=== PATIENT | female | born 1960 | race Caucasian/White ===

== ENCOUNTER → 2016-12-14 | Outpatient (CLI) | payer OTHER ==
[~2016-12-14] MED LIST: IBUP200C PO
== END | disposition home or self-care (01) ==
LOC: CFH 12:10
PROVIDERS: ATTEND Family Medicine
DX: Z12.31 Encounter for screening mammogram for malignant neoplasm of breast (principal)
CPT/HCPCS: G0202

== ENCOUNTER 2017-09-24 11:54 | Day surgery (SDC) | payer OTHER ==
[2017-09-17 10:00] VITALS: BP 148/82
[~2017-09-24] VITALS: Ht 177.8 cm; Wt 74.0 kg
[~2017-09-24 11:54] MED LIST changes: -IBUP200C PO; +IBUP200C5 PO; +[UNRECOGNIZED DRUG - REMARK]
[2017-09-24] MEDS ORDERED: LACTATED RINGERS 1,000 ML IV SCH ×3 (12:46→19:30)
[2017-09-24] MEDS ORDERED: CIPR10DR RIGHT EAR (13:00)
[2017-09-24] MEDS ORDERED: LIDOCAINE 1%, 2ML ONE (13:01)
[2017-09-24] MEDS ORDERED: BUPIVACAINE/PF 0.5% ONE (13:29)
[2017-09-24] MEDS ORDERED: LIDOCAINE 1%, 2ML SQ PRN (13:30)
[2017-09-24] MEDS ORDERED: EPINEPHRINE 1 MG/ML, 1ML ONE (13:30)
[2017-09-24] MEDS ORDERED: FENTANYL PF 250 MCG/5ML ONE (14:11)
[2017-09-24] MEDS ORDERED: MIDAZOLAM 1 MG/ML, 2ML ONE (14:11)
[2017-09-24] MEDS ORDERED: GLYCOPYRROLATE 0.2MG/1ML, 5ML ONE (14:12)
[2017-09-24] MEDS ORDERED: NEOSTIGMINE 1 MG/ML, 10ML ONE (14:12)
[2017-09-24] MEDS ORDERED: PROPOFOL 10 MG/ML, 20ML ONE (14:30)
[2017-09-24] MEDS ORDERED: ROCURONIUM 10 MG/ML,10ML ONE (14:30)
[2017-09-24] MEDS ORDERED: SUCCINYLCHOLINE 20 MG/ML, 10ML ONE (14:30)
[2017-09-24] MEDS ORDERED: DEXAMETHASONE 4 MG/ML, 1ML ONE ×2 (14:30→14:33)
[2017-09-24] MEDS ORDERED: CEFAZOLIN 1,000 MG ONE ×2 (14:30→14:33)
[2017-09-24] MEDS ORDERED: ONDANSETRON 2MG/ML, 2ML ONE ×3 (14:30→15:21)
[2017-09-24] MEDS ORDERED: KETOROLAC 30 MG/1 ML ONE (15:14)
[2017-09-24] MEDS ORDERED: LABETALOL 5MG/ML, 20ML ONE (15:14)
[2017-09-24] MEDS ORDERED: OXYcodone 5 MG/5 ML ORAL.SOL UDC ONE (15:14)
[2017-09-24] MEDS ORDERED: FENTANYL PF 100 MCG/2ML ONE (15:14)
[2017-09-24] MEDS ORDERED: ACETAMINOPHEN 650 MG/20.3 ML UDC ONE (15:14)
[2017-09-24] MEDS: FENTANYL PF 100 MCG/2ML IV PRN ×2 (15:17→15:26)
[2017-09-24] MEDS: LABETALOL 5MG/ML, 20ML IV PRN ×2 (15:19→15:44)
[2017-09-24] MEDS ORDERED: MEPERIDINE/PF 25MG/0.5ML IVPush PRN (15:30)
[2017-09-24] MEDS ORDERED: hydrALAzine 20 MG/ML, 1ML IV PRN (15:30)
[2017-09-24] MEDS ORDERED: HYDROmorphone 2 MG/ML, 1ML ONE (15:30)
[2017-09-24] MEDS ORDERED: ALBUTEROL SULFATE 2.5 MG/3 ML NPPB PRN (15:30)
[2017-09-24] MEDS ORDERED: KETOROLAC 30 MG/1 ML IV PRN (15:30)
[2017-09-24] MEDS ORDERED: ONDANSETRON 2MG/ML, 2ML IVPush PRN (15:30)
[2017-09-24] MEDS ORDERED: ACETAMINOPHEN 325 MG TABLET PO PRN (15:30)
[2017-09-24] MEDS ORDERED: PROMETHAZINE 25 MG/ML, 1ML IV PRN (15:30)
[2017-09-24] MEDS ORDERED: HYDROmorphone 1 MG/ML, 1ML IV PRN (15:30)
[2017-09-24] MEDS ORDERED: OXYcodone 5 MG/5 ML ORAL.SOL UDC PO PRN (15:30)
[2017-09-24] MEDS ORDERED: MIDAZOLAM 1 MG/ML, 2ML IV PRN (15:30)
[2017-09-24 19:25] VITALS: BP 133/77
[2017-09-24] MEDS ORDERED: MORPHINE SULFATE 4 MG/ML, 1ML IVPush PRN (19:30)
[2017-09-24] MEDS ORDERED: OXYcodone/APAP 5/325MG TABLET PO PRN (19:30)
== END 2017-09-24 20:30 | disposition home or self-care (01) ==
LOC: OUT 11:54 → 4NOR 19:12 → OUT 20:30
PROVIDERS: ATTEND Surgery
DX: K80.12 Calculus of gallbladder with acute and chronic cholecystitis without obstruction (principal); Z86.19 Personal history of other infectious and parasitic diseases; Z87.891 Personal history of nicotine dependence; Z72.89 Other problems related to lifestyle
CPT/HCPCS: 47379; 47562; 88304; 88307; 88313; J0171; J0330; J0690; J1100; J1170; J1885; J2250; J2405; J2704; J2710; J3010; J3490; J7120

== ENCOUNTER → 2018-01-24 | Outpatient (CLI) | payer OTHER ==
[~2018-01-24] MED LIST changes: +CIPR10DR RIGHT EAR
== END ==
LOC: CFH 08:42
PROVIDERS: ATTEND Family Medicine
DX: Z12.31 Encounter for screening mammogram for malignant neoplasm of breast (principal)
CPT/HCPCS: 77067

== ENCOUNTER 2019-04-30 10:15 | Emergency (ER) | payer OTHER ==
[~2019-04-30] VITALS: Ht 177.8 cm; Wt 72.3 kg
[2019-04-30 13:42] VITALS: BP 121/74
== END 2019-04-30 13:44 | disposition home or self-care (01) ==
LOC: ED 12:48
DX: N30.00 Acute cystitis without hematuria (principal); R10.30 Lower abdominal pain, unspecified
CPT/HCPCS: 36415; 74021; 76830; 80053; 81001; 83690; 85025; 87077; 87086; 87147; 87186; 99284

== ENCOUNTER 2020-06-24 12:23 | Emergency (ER) | payer SELFPAY ==
[~2020-06-24] VITALS: Ht 177.8 cm; Wt 74.1 kg
[~2020-06-24 12:23] MED LIST changes: +IBUP-1623 PO; -IBUP200C5 PO
[2020-06-24] MEDS ORDERED: SODIUM CHLORIDE FLUSH 10ML SYR IVF ONE (13:00)
[2020-06-24] MEDS ORDERED: SODIUM CHLORIDE 0.9% 1,000ML IVBOLUS ONE (13:00)
--- NOTE | 2020-06-24 13:00 | NUR ---
Pt here for abd pain with diarrhea for 3 days. Pt reports that she knows her coworker had a gi bug but it only lasted 3 days and hers is almost on 7 days of symptoms. Pt reports that she has had decreased po intake now and does not feel well. Pt connected to monitors and call light in reach. Awaiting further orders.
[2020-06-24 13:06] LABS: BASOPHILS % (AUTO) 1 % (0-1); EOSINOPHILS % (AUTO) 2 % (1-7); LYMPHOCYTES % (AUTO) 18 % (22-44); MEAN CORPUSCULAR HEMOGLOBIN 30.7 pg (27.0-34.8); MEAN CORPUSCULAR HGB CONC 33.3 g/dL (32.4-35.8); MEAN PLATELET VOLUME 7.4 fL (7.4-10.4); MONOCYTES % (AUTO) 9 % (2-9); NEUTROPHILS % (AUTO) 70 % (42-75); PLATELET COUNT 396 x10^3/uL (130-400); RED BLOOD COUNT 4.89 x10^6/uL (3.82-5.3); RED CELL DISTRIBUTION WIDTH 12.5 % (9.6-15.2)
[2020-06-24 13:07] LABS: MD NO
--- NOTE | 2020-06-24 13:15 | NUR ---
PIV placed and ivf running
[2020-06-24 13:17] LABS: ALBUMIN 4.1 g/dL (3.4-5.0); ANION GAP 6 mmol/L (5-15); CALCIUM 9.1 mg/dL (8.5-10.1); CHLORIDE 108 mmol/L (98-107)
[2020-06-24 13:19] LABS: ALANINE AMINOTRANSFERASE 34 U/L (12-78); ALKALINE PHOSPHATASE 101 U/L (45-117); BILIRUBIN,TOTAL 0.6 mg/dL (0.2-1.0); CREATININE 0.92 mg/dL (0.55-1.02); TOTAL PROTEIN 8.2 g/dL (6.4-8.2)
--- NOTE | 2020-06-24 14:12 | NUR ---
Pt taken to restroom.
[2020-06-24 14:29] VITALS: BP 124/86
--- NOTE | 2020-06-24 14:54 | NUR ---
awaiting dc papers at this time.
--- NOTE | 2020-06-24 15:30 | NUR ---
Patient/Caregiver given discharge instructions and they have confirmed that they understand the instructions. Patient ambulatory with steady gait.
== END 2020-06-24 15:32 | disposition home or self-care (01) ==
LOC: ED 14:19
DX: R19.7 Diarrhea, unspecified (principal); R10.30 Lower abdominal pain, unspecified
CPT/HCPCS: 36415; 74021; 80053; 85025; 96360; 99284; J7030

== ENCOUNTER 2020-07-18 10:55 | Emergency (ER) | payer SELFPAY ==
[~2020-07-18] VITALS: Ht 177.8 cm; Wt 78.1 kg
[2020-07-18] MEDS ORDERED: SODIUM CHLORIDE FLUSH 10ML SYR IVF ONE (12:00)
[2020-07-18 12:02] LABS: BASOPHILS % (AUTO) 1 % (0-1); EOSINOPHILS % (AUTO) 2 % (1-7); LYMPHOCYTES % (AUTO) 24 % (22-44); MEAN CORPUSCULAR HEMOGLOBIN 30.9 pg (27.0-34.8); MEAN CORPUSCULAR HGB CONC 33.6 g/dL (32.4-35.8); MEAN PLATELET VOLUME 7.4 fL (7.4-10.4); MONOCYTES % (AUTO) 8 % (2-9); NEUTROPHILS % (AUTO) 65 % (42-75); PLATELET COUNT 345 x10^3/uL (130-400); RED BLOOD COUNT 4.81 x10^6/uL (3.82-5.3); RED CELL DISTRIBUTION WIDTH 12.9 % (9.6-15.2)
--- NOTE | 2020-07-18 12:02 | NUR ---
TASK RN: TAB SENT FROM [facility]
[2020-07-18 12:05] LABS: MD NO
[2020-07-18 12:14] LABS: ALANINE AMINOTRANSFERASE 33 U/L (12-78); ALBUMIN 4.2 g/dL (3.4-5.0); ANION GAP 5 mmol/L (5-15); CALCIUM 8.9 mg/dL (8.5-10.1); CHLORIDE 110 mmol/L (98-107); CREATININE 0.96 mg/dL (0.55-1.02)
[2020-07-18 12:16] LABS: ALKALINE PHOSPHATASE 115 U/L (45-117); BILIRUBIN,TOTAL 0.4 mg/dL (0.2-1.0); TOTAL PROTEIN 8.1 g/dL (6.4-8.2)
[2020-07-18 12:16] LABS: MICROSCOPIC AUTO
--- NOTE | 2020-07-18 13:47 | NUR ---
PATIENT AMBULATORY TO ROOM AT THIS TIME
--- NOTE | 2020-07-18 13:52 | NUR ---
PATIENT WALKED BACK FROM TRIAGE WITH CHIEF C/O GENERALIZED ABD PAIN X6DAYS. PATIENT SEEN A COUPLE WEEKS AGO FOR "INTESTINAL ILLNESS." PATIENT WAS FEELING BETTER UNTIL LAST WEDNESDAY WHEN SHE STARTED EXPERIENCING ABD CRAMPING, THAT HAS NOT GONE AWAY. PATIENT STATES SHE HAS BEEN DIZZY, DENIES N/V/D, DENIES URINARY SYMPTOMS. CONNECTED TO VITALS MACHINE, NO SIGNS OF ACUTE DISTRESS.
[2020-07-18] MEDS ORDERED: OMNIPAQUE 350 MG/ML, 100ML BOTTLE ONE (14:49)
[2020-07-18 15:36] VITALS: BP 154/86
== END 2020-07-18 15:38 | disposition home or self-care (01) ==
LOC: ED 12:00
DX: R10.31 Right lower quadrant pain (principal); Z90.49 Acquired absence of other specified parts of digestive tract; Z87.891 Personal history of nicotine dependence
CPT/HCPCS: 36415; 74177; 80053; 81001; 85025; 87086; 99285; Q9967

== ENCOUNTER 2020-11-28 16:13 | Outpatient (CLI) | payer BC | END 2020-11-28 23:59 | disposition home or self-care (01) | LOC: CFH 16:13 | PROVIDERS: ATTEND Family Medicine | DX: Z12.31 Encounter for screening mammogram for malignant neoplasm of breast (principal) | CPT/HCPCS: 77067 ==